=== PATIENT | female | born 1980 | race Caucasian/White ===

== ENCOUNTER 2018-11-03 08:03 | Day surgery (SDC) | payer BC ==
[2018-11-03] MEDS ORDERED: DIPRIVAN 200 MG/20 ML IV ONE (08:04)
--- NOTE | 2018-11-03 08:28 | HP ---
DATE OF SURGERY: 11/03/2018 HISTORY OF PRESENT ILLNESS: The patient is a 38 year-old with history of irritable bowel syndrome, had some diarrhea, some abdominal pain with eating. No prior colonoscopy. Positive for colon cancer in grandfather. Unknown if there is any inflammatory bowel disease. Some right upper quadrant epigastric pain as well in the past. No prior gallbladder work up. Occasional rectal bleeding but not recently, some mucus in the stools. PAST MEDICAL HISTORY: Anemia, anxiety, migraines, irritable bowel syndrome. She had some rectal bleeding in the past. She had ulcers in the past. PAST SURGICAL HISTORY: Tonsillectomy. Tubal in the past. Partial hysterectomy. Lymph node biopsy in the past. MEDICATIONS: Effexor, [id number] B12, apple cider vinegar pills, Florastor. ALLERGIES: NKDA. FAMILY HISTORY: Positive for colon cancer in grandfather. Unknown if there is any inflammatory bowel disease. Cancer, diabetes, hyperthyroidism, hypertension, hypercholesterolemia, seizure disorder. SOCIAL HISTORY: No smoking or alcohol abuse. REVIEW OF SYSTEMS: Twelve systems reviewed systems negative or noncontributory as above and per preadmission questionnaire. No chest pain or palpitations otherwise pertinent for as noted above. Reportedly she had some sort of EGD. She had ulcer in 2005. I do not have access to those reports at this time. PHYSICAL EXAMINATION: GENERAL: No acute distress. HEENT: Sclerae nonicteric. NECK: No JVD. CHEST: Equal excursion, nonlabored breathing. CVS: Regular rate and rhythm. ABDOMEN: Soft, some mild tenderness right upper quadrant epigastric area. No peritoneal signs. EXTREMITIES: No significant edema. NEURO: Alert, oriented, moving extremities symmetrically. No gross motor deficits noted. RECTAL: Deferred timed to endoscopy exam. IMPRESSION: Occasional rectal bleeding, history of some right upper quadrant epigastric pain. She has family history of colon cancer. She is in need of upper and lower endoscopy for further evaluation. Risks and benefits explained in detail but not limited to bleeding or infection, risk of bowel injury or perforation possibly requiring open procedure, risk of missed or nondiagnosis or incomplete exam possibly requiring barium enema, other studies or procedures, general risk of anesthesia or sedation but not limited to. She understands and agrees to the planned procedure. If upper endoscopy is unremarkable she may need gallbladder work up or other evaluation. She understands and agrees to the planned procedure, will proceed with EGD and colonoscopy as an outpatient.
[2018-11-03] MEDS ORDERED: Lactated Ringers 1,000 ML IV SCH (08:30)
[2018-11-03 08:31] VITALS: O2SAT 100
[2018-11-03 11:53] VITALS: BP 127/65; PULSE 61
--- NOTE | 2018-11-03 14:23 | OP ---
SURGERY DATE/TIME: 11/03/2018 1032 PREOPERATIVE DIAGNOSES: 1) History of abdominal pain. 2) Past history of some rectal bleeding. 3) Family history of colon cancer. 4) History of mucousy stool. 5) History of some upper abdominal pain, right upper quadrant pain and need for upper and lower endoscopy for further evaluation. POSTOPERATIVE DIAGNOSES: 1) Mild gastritis. 2) Fair bowel prep. 3) Patchy area of inflammation rectum versus prep irritation. 4) Fair bowel prep. 5) Small internal and external hemorrhoids. PROCEDURES: 1) EGD with cold biopsy of small bowel to evaluate for celiac sprue. 2) Cold biopsy of the antrum to evaluate for Helicobacter pylori. 3) Random cold biopsies esophagus to evaluate for eosinophilic esophagitis. 4) Colonoscopy to terminal ileum. 5) Retrograde ileoscopy. 6) Random cold biopsies ileum to evaluate for microscopic ileitis. 7) Random cold colon biopsies to evaluate for microscopic colitis. 8) Cold biopsy patchy area of inflammation versus prep irritation rectum. 9) Cold biopsy prominent anal-rectal papilla anal-rectal junction. SURGEON: Dr. Jer Rowe. ANESTHESIA: MAC. ESTIMATED BLOOD LOSS: Minimal. INDICATIONS: As noted above. Risks and benefits explained in detail and not limited to and consent obtained. DESCRIPTION OF PROCEDURE AND FINDINGS: The patient is taken to the operating room. MAC anesthesia introduced. Bite block positioned. After official time out and no disagreement with planned procedure, video gastroscope easily passed down the esophagus through the patent pylorus to the junction of the second and third portion of the duodenum. Given her symptom complaints cold biopsies taken in the small bowel to look for celiac sprue. There is no evidence of any ulcers or kenia inflammation. The scope pulled back into the stomach. She had some mild erythema consistent with some mild gastritis. There is no evidence of any ulcers, masses, polyps or any other mucosal lesions other than mild gastritis. Cold biopsy taken to evaluate for Helicobacter pylori. On retroflex the gastroesophageal junction was snug against the scope. The scope is straightened. Gastroesophageal junction noted to be about 40 cm. Z-line was fairly crisp. No signs of Chapa's. No signs of any kenia esophagitis. Scope pulled back some random cold biopsies taken in the mid esophagus to evaluate for eosinophilic esophagitis. The scope is withdrawn. The patient tolerated the procedure well. Attention is then turned to colonoscopy. Digital rectal exam did not reveal any rectal masses. She did have some small internal and external hemorrhoids. The scope passed up through the slight tortuous sigmoid, descending, transverse, ascending colon. With external pressure the scope was able to be passed around to the cecum up through the terminal ileum. Retrograde ileoscopy performed. There was no macroscopic evidence of any inflammatory bowel disease but given her symptom complaints some random cold biopsies were taken in the ileum for further evaluation. The scope pulled back into the colon. The prep overall was fair. There was come liquidy stool that is suction irrigated as well as possible. It just very slightly limited the exam for very tiny lesions. Otherwise there are no signs of any large polyps, masses or obstructing lesions throughout the colon. There is no evidence of any kenia inflammation but some random cold biopsies taken to evaluate for microscopic colitis for further evaluation given her symptom complaints. The scope was then carefully pulled back to the rectum. In the rectum there was a little bit of patchy inflammation whether this is simple prep irritation or not some random cold biopsies are taken of this inflammation for further evaluation. The only other finding was that she had some minimal small internal and external hemorrhoids at the anal-rectal junction. There was just a slightly prominent papilla that was very smooth and fairly benign appearing but for completeness cold biopsies taken for further evaluation given her family history of colon cancer. Good hemostasis noted. The patient tolerated the procedure well. Findings discussed with the family out in the waiting area. I will see her back in the office next week. If she has persistent symptoms may need to do some more work up but will await path results.
== END 2018-11-03 13:32 | disposition home or self-care (01) ==
LOC: SDC 08:03
PROVIDERS: ATTEND Surgery
DX: K29.70 Gastritis, unspecified, without bleeding (principal); K62.89 Other specified diseases of anus and rectum; K64.4 Residual hemorrhoidal skin tags; K64.8 Other hemorrhoids; Z80.0 Family history of malignant neoplasm of digestive organs
CPT/HCPCS: 88305; J2704

== ENCOUNTER 2020-08-27 12:15 | Emergency (ER) | payer BC ==
[2020-08-27] MEDS ORDERED: Zofran 4 MG/2 ML VIAL IV ONE (13:19)
[2020-08-27] MEDS ORDERED: Sodium Chloride 0.9% 1000 ML 1,000 ML IV STA (13:19)
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
[2020-08-27] MEDS ORDERED: Sodium Chloride 0.9% 1000 ML 1,000 ML ONE (13:41)
[2020-08-27] MEDS ORDERED: Zofran 4 MG/2 ML VIAL ONE (13:41)
[2020-08-27 13:46] LABS: Absolute Neutrophil Ct (ANC) 7.01 (1.4-6.9); BASOPHIL % 0.2 % (0.0-0.4); Basophil (Absolute #) 0.02 (0-0.4); Eosinophil % 4.6 % (0.00-5.0); Eosinophil (Absolute #) 0.52 (0-0.5); Hematocrit 43.7 % (35-47); Hemoglobin 14.2 gm/dl (12.0-16.0); Lymphocyte (Absolute #) 3.03 (1.0-4.6); Mean Cell Volume 95.6 fl (78-100); Mean Corpuscular Hemoglobin 31.1 pg (26-32); Mean Corpuscular Hgb Concent. 32.5 g/dl (32-36); Mean Platelet Volume 9.1 fl (7.5-11.0); Monocyte (Absolute #) 0.64 (0.0-1.3); Monocytes % 5.7 % (0.0-12.0); Neutrophil % 62.5 % (36.0-66.0); Platelet Count 409 K/mm3 (150-450); Red Blood Count 4.57 M/mm3 (4.1-5.4); Red Cell Distribution Width 12.6 % (11.5-14.0); White Blood Count 11.2 K/mm3 (4.0-10.5)
[2020-08-27 13:47] LABS: Appearance CLEAR (CLEAR); Bilirubin NEGATIVE (NEGATIVE); Blood NEGATIVE Ery/ul (0-5); Glucose NEGATIVE (NEGATIVE); Ketones NEGATIVE (NEGATIVE); Leukocyte Esterase NEGATIVE (NEGATIVE); Nitrite NEGATIVE (NEGATIVE); Protein,Urine Dip NEGATIVE (Negative); Specific Gravity 1.002 (1.005-1.025); Urobilinogen NEGATIVE mg/dL (0-1)
[2020-08-27 14:29] LABS: ALBUMIN 4.2 g/dL (3.5-5.0); ALKALINE PHOSPHATASE 64 U/L (38-126); AMYLASE 53 U/L (30-110); ANION GAP 7.8 MEQ/L (5-15); BLOOD UREA NITROGEN 13 mg/dL (7-17); CHLORIDE 104 mmol/L (98-107); Calcium 9.4 mg/dL (8.4-10.2); Carbon Dioxide 30 mmol/L (22-30); Creatinine 1 0.51 mg/dL (0.52-1.04); EST GLOMERULAR FILTRATION RATE > 60.0 ML/MIN; Glucose 99 mg/dL (74-106); LIPASE 64 U/L (23-300); NT PRO BNP 47.1 pg/mL (0-450); Potassium 4.3 mmol/L (3.5-5.1); SGOT/AST 24 U/L (14-36); SGPT/ALT 16 U/L (0-35); SODIUM 137 mmol/L (137-145); T4 (Thyroxine) 6.95 ug/dL (5.53-10.96); Total Protein 7.7 g/dL (6.3-8.2)
[2020-08-27 15:25] VITALS: BP 119/86; PULSE 76
[2020-08-27 15:33] VITALS: O2SAT 99
--- NOTE | 2020-08-27 19:10 | XRAY ---
Indication: Short of breath. Positive Covid 19 in July 2020. Comparison: August 18, 2020. PA/lateral chest demonstrates new subtle right infrahilar interstitial alveolar opacity. Remaining heart and lungs unremarkable.
== END 2020-08-27 15:48 | disposition home or self-care (01) ==
LOC: ED 12:15
DX: R05 Cough (principal); R91.8 Other nonspecific abnormal finding of lung field; R11.2 Nausea with vomiting, unspecified; R07.9 Chest pain, unspecified; R53.1 Weakness; R53.83 Other fatigue
CPT/HCPCS: 36000; 36415; 71046; 80053; 81001; 82150; 83605; 83690; 83880; 84436; 84443; 84484; 85025; 85379; 93005; 96360; 96374; 99284; J2405

== ENCOUNTER 2022-01-04 10:17 | Emergency (ER) | payer BC ==
[2022-01-04] MEDS ORDERED: GI COCKTAIL 45 ML (Maalox/Lidocaine) PO ONE (11:04)
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
[2022-01-04] MEDS ORDERED: MAALOX ES 30 ML UNIT DOSE ONE (11:09)
[2022-01-04] MEDS ORDERED: XYLOCAINE VISCOUS 2% 20 ML CUP ONE (11:16)
--- NOTE | 2022-01-04 12:05 | XRAY ---
Indication: Right abdomen pain 2 weeks. Nausea. Multiple contiguous axial images obtained through the abdomen and pelvis without contrast. Comparison: None Lung bases clear. Heart not enlarged. Stomach mildly distended with food/fluid. Noncontrasted stomach and bowel loops appear nonobstructed with normal appendix. Previous partial hysterectomy. Gallbladder partially contracted without gallstones. No free fluid/air. Remaining liver, gallbladder, pancreas, spleen, adrenal glands, kidneys, ureters, bladder, ovaries, and aorta are unremarkable for noncontrast exam. Osseous structures intact. No ventral or inguinal hernias. Impression: Negative CT abdomen/pelvis without contrast exam.
[2022-01-04 13:39] VITALS: BP 140/93; PULSE 66
[2022-01-04 13:51] VITALS: O2SAT 100
== END 2022-01-04 14:03 | disposition home or self-care (01) ==
LOC: ED 10:17
DX: R10.33 Periumbilical pain (principal); Z87.11 Personal history of peptic ulcer disease; K58.9 Irritable bowel syndrome, unspecified
CPT/HCPCS: 74176; 99284; A9270-GY

== ENCOUNTER 2022-03-09 07:50 | Day surgery (SDC) | payer BC ==
[~2022-03-09 07:50] MED LIST: Lactated Ringers 1,000 ML IV ONE; Marcaine Mpf 0.5% Vial 30 Ml IJ ONE; XYLOCAINE 1% HCL 20 ML MDV ONE
[2022-03-09] MEDS ORDERED: Lactated Ringers 1,000 ML IV SCH (08:00)
[2022-03-09] MEDS ORDERED: CEFAZOLIN 2 GM-D5W BAG** 2 GM/50 ML ML IV SCH (08:00)
[2022-03-09 09:12] LABS: ALBUMIN 4.3 g/dL (3.5-5.0); ALKALINE PHOSPHATASE 71 U/L (38-126); ANION GAP 12.4 MEQ/L (5-15); BLOOD UREA NITROGEN 16 mg/dL (7-17); CHLORIDE 108 mmol/L (98-107); Calcium 9.1 mg/dL (8.4-10.2); Carbon Dioxide 24 mmol/L (22-30); Creatinine 1 0.69 mg/dL (0.52-1.04); EST GLOMERULAR FILTRATION RATE > 60.0 ML/MIN; Glucose 86 mg/dL (74-106); Potassium 4.1 mmol/L (3.5-5.1); SGOT/AST 31 U/L (14-36); SGPT/ALT 29 U/L (0-35); SODIUM 140 mmol/L (137-145); Total Protein 7.7 g/dL (6.3-8.2)
[2022-03-09] MEDS ORDERED: Decadron 4 MG INJ ONE (12:09)
[2022-03-09] MEDS ORDERED: Xylocaine-Mpf 2% 5 Ml Vial ONE (12:09)
[2022-03-09] MEDS ORDERED: DIPRIVAN 200 MG/20 ML IV ONE (12:09)
[2022-03-09] MEDS ORDERED: SUBLIMAZE 100 MCG/2 ML ONE ×2 (12:09→13:57)
[2022-03-09] MEDS ORDERED: Zemuron 100 MG/10 ML ONE (12:09)
[2022-03-09] MEDS ORDERED: Zofran 4 MG/2 ML VIAL ONE (12:09)
[2022-03-09] MEDS ORDERED: VERSED 5 MG/5 ML ONE (12:27)
[2022-03-09] MEDS ORDERED: OFIRMEV 100 ML IV ONE (12:37)
[2022-03-09] MEDS ORDERED: Pre-Attached Lta Kit TP ONE (12:37)
[2022-03-09] MEDS ORDERED: Ephedrine Sulfate 50 MG/ML ONE (12:52)
[2022-03-09] MEDS ORDERED: BRIDION 200MG/2ML IV ONE (13:20)
[2022-03-09] MEDS ORDERED: ATROPINE SULFATE 1MG ONE (13:37)
--- NOTE | 2022-03-09 13:57 | XRAY ---
Indication: Right 1st MTP arthrodesis. Intraoperative fluoroscopy provided for 51 seconds. 6 digital spot images ultimately demonstrates 1st MTP fusion with intact fixation plate/screws. Correlate with intraoperative findings/report.
--- NOTE | 2022-03-09 14:09 | XRAY ---
51 seconds fluoroscopy time in surgery for arthrodesis of the 1st metatarsal of the left foot.
[2022-03-09 16:16] VITALS: O2SAT 97
[2022-03-09 16:18] VITALS: BP 121/90; PULSE 84
--- NOTE | 2022-03-12 08:57 | OP ---
SURGERY DATE/TIME: 03/09/2022 1235 PREOPERATIVE DIAGNOSES: 1) Chronic gout. 2) Pain right foot. 3) First metaphalangeal joint osteoarthritis. 4) Difficulty with ambulation. POSTOPERATIVE DIAGNOSES: 1) Chronic gout. 2) Pain right foot. 3) First metaphalangeal joint osteoarthritis. 4) Difficulty with ambulation. PROCEDURE: Arthrodesis first metatarsophalangeal joint. SURGEON: Barak Gardiner DPM. FURNACE ERECTOR: None. ANESTHESIA: General plus a postoperative local block. See injectables for details. HEMOSTASIS: Ankle tourniquet set to 250 mm of Mercury for 30 minutes. ESTIMATED BLOOD LOSS: Less than 3 cc. MATERIALS: ALPS first metaphalangeal joint plate with combination of locking and nonlocking screws, 3-0 Nylon and 4-0 Monocryl. INJECTABLES: 20 cc of 1:1 mixture of 1% lidocaine plain and 0.5% bupivacaine plain injected in a Beckman block-type fashion. INDICATION FOR SURGERY: Justina is a very pleasant 42-year-old female known to my service for approximately one year now. The patient has been suffering with pain to the first metaphalangeal joint. The patient initially was diagnosed with gout and did seemingly have symptoms of extreme pain in the big toe joint in combination with hyperuricemia. The patient's pain did not resolve completely with modalities of medical management and even injections for this issue. The patient did have intervention for a bunion in the past which was unsuccessful. However, the patient indicates that the pain has been chronic and constant as a result. Options were discussed in regards to managing the patient's pain and due to the fact on MRI there was some moderate osteoarthritis identified likely occurred doing a nonsalvage procedure on her first metaphalangeal joint and having complete success of elimination of pain is low. It is with that we decided to proceed. The patient understands all risks, complications and benefits of surgical intervention including but not limited to delayed skin healing, nonskin healing, possibility of delayed bone healing, nonbone healing and a situation called nonunion, possible need for surgical intervention at a later date, infection, hematoma and seroma. Plenty of time was allowed for her to ask questions prior to surgical intervention which was answered to the patient's apparent satisfaction. No guarantees were provided as to the outcome surgical intervention. DESCRIPTION OF PROCEDURE AND FINDINGS: The patient is brought into the OR and placed on the OR table in the supine position. At this time general anesthesia was administered. The right lower extremity was prepped and draped in the typical sterile fashion. At this time attention was directed to the dorsal aspect of the first metaphalangeal joint where a 4 cm incision was made over the dorsal aspect of the joint just medial to the extensor hallucis longus. The extensor hallucis longus was freed from its soft tissue attachments and elevated and retracted laterally. At this time, a combination of blunt and sharp dissection was carried down to the joint where a J-stroke was performed at the medial and lateral collateral ligaments to release the capsular attachment. At this time McGlamry was introduced the plantar capsular attachment and exposing the metatarsal head. At the top of the metatarsal head there were no abnormalities. However at the plantar and lateral aspect of the joint there is a significant gout within the cartilage likely being the cause of the patient's significant pain with ambulation that is chronic in nature. At this time a 0.062 K-wire was retrograded down the tip of the metatarsal parallel with longitudinal cortex of the bone. At this time a cup and conical reamer were utilized to denude the surface of cartilage and this was flushed out of the surgical site. Following this, a 2-0 mm drill was utilized to fenestrate the bone surfaces for ingrowth of vascularity and pulling out autograft into the fusion site. Following this, a temporary K-wire was placed from a distal medial to proximal lateral orientation and also purposeful for placement of the interfragmentary screw. At this time a dorsal locking plate was placed at the dorsal aspect of the joint. The position was checked under fluoroscopy and distal locking screws were applied. Following this an eccentric compression screw was introduced into the proximal aspect of the plate and compressed the fusion site along with alternating with interfragmentary screw that was placed at the distal medial aspect of the fusion site. The remaining screws were placed as locking screws. Final shots were taken of the construct. Following this, copious amounts of sterile saline were utilized to flush the surgical site. 4-0 Monocryl was applied in a simple buried-type fashion to coapt the subcutaneous skin edges and the skin edges were then coapted utilizing a 3-0 Nylon in a horizontal mattress-type fashion. Following this, the patient had an injection of 20 cc of a 1:1 mixture of 1% lidocaine plain and 0.5% bupivacaine plain. The patient then had a dressing applied consisting of Betadine, Adaptic, 4x4 and GUADALUPE. The patient was then reversed from anesthesia and returned to the postoperative anesthesia care unit with vital signs stable and vascular status intact. The patient handled the anesthesia as well as procedure without significant complication. Postoperative orders as indicated in the patient's discharge chart.
== END 2022-03-09 15:45 | disposition home or self-care (01) ==
LOC: SDC 07:50
PROVIDERS: ATTEND Podiatrist Foot & Ankle Surgery
DX: M1A.9XX0 Chronic gout, unspecified, without tophus (tophi) (principal); M79.671 Pain in right foot; M19.071 Primary osteoarthritis, right ankle and foot; R26.2 Difficulty in walking, not elsewhere classified
CPT/HCPCS: 28750; 36415; 73620; 76000; 80053; J0461; J0690; J1100; J2250; J2405; J2704; J3010

== ENCOUNTER 2023-09-26 17:17 | Emergency (ER) | payer BC ==
[2023-09-26 17:37] VITALS: RESP 18; TEMP 99.9
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
[2023-09-26 18:08] VITALS: BP 142/96; O2SAT 99
[2023-09-26 18:09] VITALS: PULSE 84
== END 2023-09-26 18:31 | disposition home or self-care (01) ==
LOC: ED 17:17
DX: J20.9 Acute bronchitis, unspecified (principal); J06.9 Acute upper respiratory infection, unspecified; R05.9 Cough, unspecified; Z79.899 Other long term (current) drug therapy
CPT/HCPCS: 99281

== ENCOUNTER 2024-05-21 06:22 | Emergency (ER) | payer BC ==
[2024-05-21 06:40] VITALS: RESP 16; TEMP 97
[2024-05-21] MEDS ORDERED: Sodium Chloride 0.9% 1000 ML 1,000 ML ONE (06:55)
[2024-05-21] MEDS ORDERED: Zofran 4 MG/2 ML VIAL ONE (06:55)
[2024-05-21] MEDS ORDERED: TORAdol 30 mg Injection ONE (06:55)
[2024-05-21] MEDS: Sodium Chloride 0.9% 1000 ML 1,000 ML IV SCH (06:58)
[2024-05-21] MEDS: Zofran 4 MG/2 ML VIAL IV ONE (07:00)
[2024-05-21] MEDS: TORAdol 30 mg Injection IV ONE (07:01)
[2024-05-21 07:06] LABS: Absolute Neutrophil Ct (ANC) 4.41 x10^3/uL (1.56-6.13); BASOPHIL % 0.2 % (0.1-1.2); Basophil (Absolute #) 0.02 x10^3/uL (0.01-0.08); Eosinophil % 1.7 % (0.7-5.8); Eosinophil (Absolute #) 0.14 x10^3/uL (0.04-0.36); Hematocrit 40.5 % (34.1-44.9); Hemoglobin 13.5 g/dL (11.2-15.7); IMMATURE GRAN # 0.03 x10^3u/L (0.001-0.031); IMMATURE GRAN % 0.4 % (0.001-0.429); Lymphocyte (Absolute #) 3.16 x10^3/uL (1.18-3.74); Lymphocytes % 38.5 % (19.3-51.7); Mean Corpuscular Hemoglobin 31.3 pg (25.6-32.2); Mean Corpuscular Hgb Concent. 33.3 g/dL (32.2-35.5); Mean Platelet Volume 9.3 fL (9.4-12.3); Monocyte (Absolute #) 0.45 x10^3/uL (0.24-0.86); Monocytes % 5.5 % (4.7-12.5); Neutrophil % 53.7 % (34.0-71.1); Platelet Count 393 x10^3/uL (182-369); Red Blood Count 4.31 x10^6/uL (3.93-5.22); Red Cell Distribution Width 11.9 % (11.7-14.4); White Blood Count 8.2 x10^3/uL (3.98-10.04)
[2024-05-21 07:08] LABS: HCG URINE TEST NEGATIVE (NEGATIVE)
[2024-05-21 07:12] LABS: Appearance Cloudy (Clear); Bacteria Few /HPF (None Seen); Bilirubin Negative (Negative); Blood Negative (Negative); Epithelial Cells Many /HPF (None Seen); Glucose, Urine Negative (Negative); Hyaline Casts NONE SEEN /LPF (0-2); Ketones Trace (Negative); Leukocyte Esterase Negative (Negative); Nitrite Negative (Negative); Ph 5.5 (4.6-8.0); Protein,Urine Dip Negative (Negative); RBC 0-2 /HPF (0-5); Urobilinogen 0.2 mg/dL (0.2); WBC 0-2 /HPF (0-5)
[2024-05-21 07:14] LABS: ADD URINE CULTURE? NO (NO)
[2024-05-21 07:20] LABS: ALBUMIN 4.3 g/dL (3.5-5.0); ANION GAP 11.1 MEQ/L (5-15); BILIRUBIN,TOTAL 0.3 mg/dL (0.2-1.3); Calcium 9.7 mg/dL (8.4-10.2); Creatinine 1 0.62 mg/dL (0.52-1.04); EST GLOMERULAR FILTRATION RATE 113.3 ML/MIN; Potassium 4.4 mmol/L (3.5-5.1); Total Protein 7.2 g/dL (6.3-8.2)
--- NOTE | 2024-05-21 07:46 | XRAY ---
CLINICAL HISTORY: pain COMPARISON: None. TECHNIQUE: A CT scan of the abdomen and pelvis was performed without IV contrast. Coronal and sagittal reconstructive images were also obtained. One of the following dose reduction techniques was utilized for this exam.Automated exposure control, adjustment of the mA and/or kV according to patient size, and use of iterative reconstruction. FINDINGS: The liver is mildly enlarged measuring 17.5 cm. No focal or diffuse parenchymal abnormality. The intrahepatic biliary radicals and the bile ducts are normal. The gallbladder is normal. No pericholecystic collection or radio-dense calculi in the gall bladder. The spleen, pancreas, and adrenal glands are unremarkable. The kidneys are normal in size and shape. No calculi, masses, or hydronephrosis. The ascending colon, the transverse colon, the descending colon, and the visualized small bowel loops are unremarkable. No CT evidence of acute appendicitis. The urinary bladder is unremarkable. Ill-definition of the uterus could be surgically removed, please correlate clinically. No gross adnexal abnormality could be identified. Few sigmoid diverticulae. No CT evidence of acute diverticulitis. No evidence of abdominopelvic lymphadenopathy. No ascites. A scan through the lower chest reveals an unremarkable lung. Degenerative changes of the scanned spine. IMPRESSION: 1. No acute abdominopelvic abnormality was seen. 2. Few sigmoid diverticulae. No CT evidence of acute diverticulitis. 3. Mild hepatomegaly. 4. Unremarkable rest of the CT examination for the abdomen and pelvis. Electronically Signed by: Claus Kearns MD. (05/21/2024 07:42:35 EDT)
[2024-05-21] MEDS ORDERED: MORPHINE SULFATE 4 MG INJ ONE (07:52)
[2024-05-21] MEDS: MORPHINE SULFATE 4 MG INJ IV ONE (07:53)
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
[2024-05-21 08:48] VITALS: O2SAT 100
[2024-05-21] MEDS ORDERED: NORCO 5/325 MG ONE (09:00)
[2024-05-21] MEDS: NORCO 5/325 MG PO ONE (09:00)
[2024-05-21 09:04] VITALS: BP 142/93; PULSE 74
== END 2024-05-21 09:00 | disposition home or self-care (01) ==
LOC: ED 06:22
DX: R10.31 Right lower quadrant pain (principal); K59.00 Constipation, unspecified; R19.7 Diarrhea, unspecified; Z79.899 Other long term (current) drug therapy
CPT/HCPCS: 36000; 36415; 74176; 80053; 81001; 81025; 83690; 85025; 96360; 96361; 96374; 96375; 99284; J1885; J2270; J2405; A9270-GY